=== PATIENT | male | born 1980 | race Caucasian/White ===

== ENCOUNTER 2022-07-30 20:34 | Emergency (ER) | payer OTHER ==
[~2022-07-30] VITALS: Ht 193 cm; Wt 153.3 kg
[2022-07-30] MEDS ORDERED: BACTRIM DS TAB1 EAC2 PO (22:46)
[2022-07-30 23:28] LABS: BASOPHILS ABSOLUTE AUTO 0.04 K/mm3 (0.00-0.23); BASOPHILS PERCENT AUTO 1 % (0-2); EOSINOPHILS ABSOLUTE AUTO 0.25 K/mm3 (0.00-0.68); EOSINOPHILS PERCENT AUTO 3 % (0-6); Hematocrit 42.3 % (37.0-53.0); Hemoglobin 14.1 g/dL (13.5-17.5); IMMATURE GRAN ABSOLUTE AUTO 0.03 K/mm3 (0.00-0.10); IMMATURE GRAN PERCENT AUTO 0 % (0-1); LYMPHOCYTES ABSOLUTE AUTO 2.99 K/mm3 (0.84-5.20); LYMPHOCYTES PERCENT AUTO 38 % (21-46); MONOCYTES ABSOLUTE AUTO 0.66 K/mm3 (0.16-1.47); MONOCYTES PERCENT AUTO 8 % (4-13); Mean Corpuscular HGB 29.9 pg (26.0-34.0); Mean Corpuscular HGB Conc 33.3 g/dL (31.5-36.5); Mean Corpuscular Volume 90 fL (80-100); Mean Platelet Volume 9.5 fL (9.1-12.4); NEUTROPHILS ABSOLUTE AUTO 4.01 K/mm3 (1.96-9.15); NEUTROPHILS PERCENT AUTO 50 % (41-73); Platelet Count 229 K/mm3 (150-400); RDW Coefficient Variation 13.2 % (11.7-14.2); RDW Standard Deviation 43.2 fL (35.1-46.3); Red Blood Cell Count 4.72 M/mm3 (4.30-5.90); White Blood Cell Count 7.98 K/mm3 (4.00-11.30)
[2022-07-30 23:47] LABS: Albumin, Blood 3.5 g/dL (3.4-5.0); Albumin/Globulin Ratio 0.9 (0.8-1.8); Bilirubin, Total 0.3 mg/dL (0.1-1.0); Bun/Creatinine Ratio 24.8 (12.0-20.0); Calcium, Blood 9.2 mg/dL (8.5-10.1); Creatinine, Blood 0.85 mg/dL (0.60-1.20); Globulin, Blood 3.9 g/dL (2.2-4.0); Potassium, Blood 4.4 mmol/L (3.5-5.5); Total Protein, Blood 7.4 g/dL (6.4-8.2)
[2022-08-01] MEDS ORDERED: BACTRIM DS TAB1 EAC6 PO (14:06)
[2022-08-01] MEDS ORDERED: CEPH500 PO (14:07)
[2022-08-01] MEDS ORDERED: VISBIOME 112.51 EACH PO (14:08)
[2022-08-01] MEDS ORDERED: TRAM50 PO (14:26)
[2022-08-01] MEDS ORDERED: ACET325 PO (14:30)
== END 2022-07-31 | disposition home or self-care (01) ==
LOC: ER 20:34
PROVIDERS: Student in an Organized Health Care Education/Training Program
DX: S91.302A Unspecified open wound, left foot, initial encounter (principal); S91.301A Unspecified open wound, right foot, initial encounter; L97.529 Non-pressure chronic ulcer of other part of left foot with unspecified severity; L97.519 Non-pressure chronic ulcer of other part of right foot with unspecified severity; F17.200 Nicotine dependence, unspecified, uncomplicated; Z88.0 Allergy status to penicillin; X58.XXXA Exposure to other specified factors, initial encounter
CPT/HCPCS: 36415; 80053; 85025; 86850; 86900; 86901; 99282

== ENCOUNTER 2022-07-31 08:21 | Inpatient (IN) | payer OTHER ==
[~2022-07-31] VITALS: Ht 195.6 cm; Wt 149.7 kg
[~2022-07-31 08:21] MED LIST: BACTRIM DS TAB1 EAC2 PO
[2022-07-31 10:36] LABS: BASOPHILS ABSOLUTE AUTO 0.04 K/mm3 (0.00-0.23); BASOPHILS PERCENT AUTO 1 % (0-2); EOSINOPHILS ABSOLUTE AUTO 0.18 K/mm3 (0.00-0.68); EOSINOPHILS PERCENT AUTO 3 % (0-6); Hematocrit 45.6 % (37.0-53.0); IMMATURE GRAN ABSOLUTE AUTO 0.02 K/mm3 (0.00-0.10); IMMATURE GRAN PERCENT AUTO 0 % (0-1); LYMPHOCYTES ABSOLUTE AUTO 2.04 K/mm3 (0.84-5.20); LYMPHOCYTES PERCENT AUTO 36 % (21-46); MONOCYTES PERCENT AUTO 9 % (4-13); Mean Corpuscular HGB 29.9 pg (26.0-34.0); Mean Corpuscular HGB Conc 32.9 g/dL (31.5-36.5); Mean Corpuscular Volume 91 fL (80-100); NEUTROPHILS ABSOLUTE AUTO 2.89 K/mm3 (1.96-9.15); NEUTROPHILS PERCENT AUTO 51 % (41-73); RDW Coefficient Variation 13.2 % (11.7-14.2); RDW Standard Deviation 44.1 fL (35.1-46.3); Red Blood Cell Count 5.02 M/mm3 (4.30-5.90); White Blood Cell Count 5.67 K/mm3 (4.00-11.30)
[2022-07-31 10:48] LABS: Mean Platelet Volume 12.2 fL (9.1-12.4)
[2022-07-31 11:30] LABS: Mean Platelet Volume 9.6 fL (9.1-12.4); Platelet Count 233 K/mm3 (150-400)
[2022-07-31 11:51] LABS: Albumin, Blood 3.5 g/dL (3.4-5.0); Albumin/Globulin Ratio 0.8 (0.8-1.8); Bilirubin, Total 0.5 mg/dL (0.1-1.0); Bun/Creatinine Ratio 24.1 (12.0-20.0); Creatinine, Blood 0.83 mg/dL (0.60-1.20); Globulin, Blood 4.3 g/dL (2.2-4.0); Potassium, Blood 4.6 mmol/L (3.5-5.5); Total Protein, Blood 7.8 g/dL (6.4-8.2)
[2022-07-31 11:54] LABS: CHOL/HDL RATIO 5.5; Cholesterol 181 mg/dL (50-200); HDL Cholesterol 33 mg/dL (>39); LDL/HDL RATIO 3.5; Low Density Lipoprotein Chol 116 mg/dL (0-110); Triglycerides 160 mg/dL (30-160); Very Low Density Lipoprot Chol 32 mg/dL (6-32)
[2022-07-31 16:26] LABS: Influenza A, PCR NEGATIVE (NEGATIVE); Influenza B, PCR NEGATIVE (NEGATIVE); Resp Syncytial Virus, PCR NEGATIVE (NEGATIVE); SARS-Cov-2 (COVID-19) PCR, MMC NEGATIVE (NEGATIVE)
--- NOTE | 2022-07-31 17:54 | NUR ---
SHIFT SUMMARY: ASSUMED CARE OF PT UPON HIS ARRIVAL FROM ED AT 1240. A&O X 4, PLEASANT, ACCOMPLANIED BY AND MOTHER. INDEPENDENT IN ROOM. STATED PAIN WAS CONTROLLED UPON ARRIVAL. WAS TAKEN TO DAY SURGERY AT ~1650 FOR TOE AMPUTATIONS.
--- NOTE | 2022-07-31 19:19 | NUR ---
PATIENT RETURNED FROM OR AT 1849 VIA [facility]. ALERT, A LITTLE GROGGY, WAS ABLE TO SCOOT FROM [facility] TO BED. DRESSINGS CD&I ON BILATERAL FEET. RECEIVED BEDSIDE REPORT FROM David VALENCIA RN.
--- NOTE | 2022-08-01 04:30 | NUR ---
SHIFT SUMMARY PT RETURNED FROM OR RIGHT AROUND SHIFT CHANGE LAST EVENING. PT INITIALLY DID NOT HAVE ANY PAIN, BUT BEGAN TO HAVE PAIN LATER IN THE EVENING. PT STS THAT IT IS ALMOST LIKE PHANTOM PAIN IN HIS TOES THAT WERE AMPUTATED. PT MEDICATED WITH ULTRAM AND TYLENOL, WHICH HE STS HELPED AND HE WAS ABLE TO GET A FEW HOURS OF SLEEP. PT IS PLEASANT AND COOPERATIVE WITH CARE. HE USES HIS CALL LIGHT APPROPRIATELY.
[2022-08-01 04:53] LABS: BASOPHILS ABSOLUTE AUTO 0.01 K/mm3 (0.00-0.23); BASOPHILS PERCENT AUTO 0 % (0-2); EOSINOPHILS PERCENT AUTO 0 % (0-6); IMMATURE GRAN ABSOLUTE AUTO 0.06 K/mm3 (0.00-0.10); IMMATURE GRAN PERCENT AUTO 1 % (0-1); LYMPHOCYTES ABSOLUTE AUTO 0.88 K/mm3 (0.84-5.20); LYMPHOCYTES PERCENT AUTO 8 % (21-46); MONOCYTES ABSOLUTE AUTO 0.13 K/mm3 (0.16-1.47); MONOCYTES PERCENT AUTO 1 % (4-13); Mean Corpuscular HGB 29.4 pg (26.0-34.0); Mean Corpuscular HGB Conc 33.3 g/dL (31.5-36.5); Mean Corpuscular Volume 88 fL (80-100); Mean Platelet Volume 9.7 fL (9.1-12.4); NEUTROPHILS ABSOLUTE AUTO 9.42 K/mm3 (1.96-9.15); NEUTROPHILS PERCENT AUTO 90 % (41-73); Platelet Count 195 K/mm3 (150-400); RDW Coefficient Variation 12.7 % (11.7-14.2); RDW Standard Deviation 41.1 fL (35.1-46.3); Red Blood Cell Count 4.76 M/mm3 (4.30-5.90)
[2022-08-01 05:12] LABS: Bun/Creatinine Ratio 26.1 (12.0-20.0); Calcium, Blood 8.6 mg/dL (8.5-10.1); Creatinine, Blood 0.69 mg/dL (0.60-1.20); Potassium, Blood 4.5 mmol/L (3.5-5.5)
[2022-08-01] MEDS ORDERED: BACTRIM DS TAB1 EAC6 PO (14:06)
[2022-08-01] MEDS ORDERED: CEPH500 PO (14:07)
[2022-08-01] MEDS ORDERED: VISBIOME 112.51 EACH PO (14:08)
[2022-08-01] MEDS ORDERED: TRAM50 PO (14:26)
[2022-08-01] MEDS ORDERED: ACET325 PO (14:30)
--- NOTE | 2022-08-01 15:59 | NUR ---
DISCHARGE PATIENT WAS DISCHARGED TO HOME THIS AFTERNOON. DISCHARGE INSTRUCTIONS WERE REVIEWED INCLUDING FOLLOW UP APPTOINTMENTS, MEDICATIONS. 2 IV'S WERE DISCONTINUED AND THE PATIENT WAS TRANSPORTED TO HOME BY HIS .
== END 2022-08-01 15:12 | disposition home or self-care (01) | DRG 505 ==
LOC: ER 08:21 → MEDS 11:15
PROVIDERS: Anesthesiology; Emergency Medicine; Nurse Practitioner Acute Care; Podiatrist; ADMIT Internal Medicine
PROC: 0Y6R0Z3 Detachment at Right 2nd Toe, Low, Open Approach (ICD-10-PCS; 2022-07-31)
PROC: 0Y6S0Z0 Detachment at Left 2nd Toe, Complete, Open Approach (ICD-10-PCS; principal; 2022-07-31 16:00)
DX: M86.8X7 Other osteomyelitis, ankle and foot (principal); M86.171 Other acute osteomyelitis, right ankle and foot; E66.01 Morbid (severe) obesity due to excess calories; G62.9 Polyneuropathy, unspecified; L97.524 Non-pressure chronic ulcer of other part of left foot with necrosis of bone; L97.514 Non-pressure chronic ulcer of other part of right foot with necrosis of bone; Z88.0 Allergy status to penicillin; Z98.890 Other specified postprocedural states; D69.6 Thrombocytopenia, unspecified; Z68.39 Body mass index [BMI] 39.0-39.9, adult; Z20.822 Contact with and (suspected) exposure to COVID-19; J45.909 Unspecified asthma, uncomplicated
CPT/HCPCS: 0241U; 36415; 73630; 80048; 80053; 80061; 83036; 85025; 85049; 87040; 87071; 87075; 87205; 88305; 88311; 93922; 94640; 94664; 94760; 97165; 99285-25; A9270; J0696; J1100; J2001; J2250; J2405; J2704; J2795; J3010; J3370; J7030; J7050; J7120